=== PATIENT | female | born 1995 | race American Indian/Alaskan Native ===

== ENCOUNTER 2017-11-14 21:43 | Emergency (ER) | payer SELFPAY ==
[2017-11-15 00:12] LABS: HCG Qualitative,Urine Positive (Negative)
[2017-11-15 00:25] LABS: Bilirubin,Urine NEG (Negative); Blood,Urine NEG (Negative); Color,Urine Yellow (Yellow); Mucus,Urine 3+ /HPF; Protein,Urine <15 mg/dL mg/dL (Negative)
--- NOTE | 2017-11-15 02:15 | Ultrasound Report ---
FINAL REPORT PROCEDURE: US OB transabdominal and TRANSVAGINAL TECHNIQUE: Real-time transabdominal and transvaginal sonography of the uterus, placenta, amniotic fluid, adnexa, and fetus was performed with image documentation. Measurements were obtained to determine age/size. M-mode Doppler was used to document heartbeat. CPT 54742 and 36451 HISTORY: pregant abd pain COMPARISON: No prior studies are available for comparison. FINDINGS: Gestational Sac: There is a small gestational sac this measures 2 millimeters. This corresponds to a gestational age of approximately 5 weeks. No pole is seen at this time. Amniotic fluid: Normal. Cervix: Normal. Right Ovary: There are few cysts identified on the right ovary. One measures 29 millimeters. A 2nd cyst measures 17 millimeters Left Ovary: Normal. IMPRESSION: There is a gestational sac identified within the uterus. The gestational age would be around 5 weeks. No pole yolk sac is seen at this time. There are 2 small cysts identified in the right ovary. The left ovary has a normal appearance. Followup studies may be of benefit. This could include serial beta HCG levels as well as repeat ultrasound of 14 days.
--- NOTE | 2017-11-15 02:15 | Ultrasound Report ---
FINAL REPORT PROCEDURE: US OB TRANSVAGINAL TECHNIQUE: Real-time transabdominal and transvaginal sonography of the uterus, placenta, amniotic fluid, adnexa, and fetus was performed with image documentation. Measurements were obtained to determine age/size. M-mode Doppler was used to document heartbeat. CPT 46848 and 01917 HISTORY: pregant abd pain COMPARISON: No prior studies are available for comparison. FINDINGS: Gestational Sac: There is a small gestational sac this measures 2 millimeters. This corresponds to a gestational age of approximately 5 weeks. No pole is seen at this time. Amniotic fluid: Normal. Cervix: Normal. Right Ovary: There are few cysts identified on the right ovary. One measures 29 millimeters. A 2nd cyst measures 17 millimeters Left Ovary: Normal. IMPRESSION: There is a gestational sac identified within the uterus. The gestational age would be around 5 weeks. No pole yolk sac is seen at this time. There are 2 small cysts identified in the right ovary. The left ovary has a normal appearance. Followup studies may be of benefit. This could include serial beta HCG levels as well as repeat ultrasound of 14 days.
[2017-11-15] MEDS ORDERED: PROVENTIL IH ONE (02:33)
--- NOTE | 2017-11-15 02:38 | Emergency Department Report ---
- General Chief Complaint: Upper Respiratory Infection Stated Complaint: SOB, CHEST PAIN Time Seen by Provider: 11/15/17 02:02 Source: patient Mode of arrival: Ambulatory Limitations: No Limitations - History of Present Illness Initial Comments: 22-year-old female past medical history asthma, smoker presents with complaint of 2-3 days of intermittent wheezing. Patient states that she primarily came to the ED because she was wheezing. Triage ordered x-ray but canceled x-ray when determined that she had a positive test. Patient is currently awake alert and oriented 3 fully lucid. Denies fever chills nausea vomiting abdominal pain chest pain shortness of breath. States that she felt slightly short of breath earlier today. Denies any pleuritic chest pain. Patient is fully lucid awake alert and oriented 3 speaking in full sentences no audible wheezing or stridor. Denies fevers or chills. States that her sinuses have been slightly congested over the last 2 weeks. Last menstrual period was approximately beginning of September as per patient. MD Complaint: nasal congestion Onset/Timin -: week(s) - Related Data Previous Rx's Medication Instructions Recorded Last Taken Type Albuterol Sulfate [Ventolin Hfa] 1 puff IH Q4H PRN #1 hfa.aer.ad 11/15/17 Unknown Rx Fluticasone [Flonase] 1 spray NS QDAY PRN #1 bottle 11/15/17 Unknown Rx Nitrofurantoin Monohyd/M-Cryst 100 mg PO BID #10 capsule 11/15/17 Unknown Rx [Macrobid 100 mg Capsule] Pnv No.95/Ferrous Fum/Folic AC 1 each PO QDAY #30 tablet 11/15/17 Unknown Rx [ Formula Tablet] Allergies Allergy/AdvReac Type Severity Reaction Status Date / Time No Known Allergies Allergy Unverified 11/14/17 23:05 ED Review of Systems ROS: Stated complaint: SOB, CHEST PAIN Other details as noted in HPI ED Past Medical Hx - Past Medical History Previous Medical History?: Yes Hx Asthma: Yes Additional medical history: Bronchitis - Surgical History Past Surgical History?: No - Social History Smoking Status: Current Every Day Smoker Substance Use Type: Alcohol, Marijuana - Medications Home Medications: Home Medications Medication Instructions Recorded Confirmed Last Taken Type Albuterol Sulfate [Ventolin Hfa] 1 puff IH Q4H PRN #1 hfa.aer.ad 11/15/17 Unknown Rx Fluticasone [Flonase] 1 spray NS QDAY PRN #1 bottle 11/15/17 Unknown Rx Nitrofurantoin Monohyd/M-Cryst 100 mg PO BID #10 capsule 11/15/17 Unknown Rx [Macrobid 100 mg Capsule] Pnv No.95/Ferrous Fum/Folic AC 1 each PO QDAY #30 tablet 11/15/17 Unknown Rx [ Formula Tablet] ED Physical Exam - General Limitations: No Limitations General appearance: alert, in no apparent distress - Head Head exam: Present: atraumatic, normocephalic - Eye Eye exam: Present: normal appearance - ENT ENT exam: Present: mucous membranes moist - Neck Neck exam: Present: normal inspection - Respiratory Respiratory exam: Present: normal lung sounds bilaterally. Absent: respiratory distress - Cardiovascular Cardiovascular Exam: Present: regular rate, normal rhythm. Absent: systolic murmur, diastolic murmur, rubs, gallop - GI/Abdominal GI/Abdominal exam: Present: soft, normal bowel sounds - Extremities Exam Extremities exam: Present: normal inspection - Back Exam Back exam: Present: normal inspection - Neurological Exam Neurological exam: Present: alert, oriented X3, CN II-XII intact, normal gait - Psychiatric Psychiatric exam: Present: normal affect, normal mood - Skin Skin exam: Present: warm, dry, intact, normal color. Absent: rash ED Course Vital Signs 11/14/17 11/14/17 21:59 23:05 Temperature 98.9 F 98.9 F Pulse Rate 79 Respiratory 16 Rate Blood Pressure 111/74 O2 Sat by Pulse 100 Oximetry ED Medical Decision Making - Medical Decision Making A/P: Reactive airway disease, , UTI 1-Macrobid empiric 5 day course 2-Flonase, Tylenol, Mucinex 3-albuterol inhaler 4- ultrasound shows IUP at 5 weeks, patient reports no bleeding. Follow-up with primary care and [facility] Critical care attestation.: If time is entered above; I have spent that time in minutes in the direct care of this critically ill patient, excluding procedure time. ED Disposition Clinical Impression: Qualifiers: Weeks of gestation: less than 8 weeks Qualified Code(s): Z3A.01 - Less than 8 weeks gestation of Reactive airway disease Qualifiers: Asthma severity: mild Asthma persistence: intermittent Asthma complication type : with acute exacerbation Qualified Code(s): J45.21 - Mild intermittent asthma with (acute) exacerbation Urinary tract infection Qualifiers: Urinary tract infection type: site unspecified Hematuria presence: without hematuria Qualified Code(s): N39.0 - Urinary tract infection, site not specified Disposition: TO HOME OR SELFCARE Is pt being admited?: No Does the pt Need Aspirin: No Condition: Stable Instructions: (ED), Urinary Tract Infection in Women (ED), Reactive Airways Disease (ED) Prescriptions: Albuterol Sulfate [Ventolin Hfa] 1 puff IH Q4H PRN #1 hfa.aer.ad PRN Reason: Wheezing Fluticasone [Flonase] 1 spray NS QDAY PRN #1 bottle PRN Reason: Congestion Nitrofurantoin Monohyd/M-Cryst [Macrobid 100 mg Capsule] 100 mg PO BID #10 capsule Pnv No.95/Ferrous Fum/Folic AC [ Formula Tablet] 1 each PO QDAY #30 tablet Referrals: ORLANDO DAVISON MD [Primary Care Provider] - 3-5 Days [facility] [Provider Group] - 3-5 Days [facility] [Provider Group] - 3-5 Days Time of Disposition: 02:44
[2017-11-15 03:51] VITALS: BP 114/76
== END 2017-11-15 02:57 | disposition home or self-care (01) ==
LOC: ED 21:43
DX: O23.41 Unspecified infection of urinary tract in pregnancy, first trimester (principal); O99.511 Diseases of the respiratory system complicating pregnancy, first trimester; J45.909 Unspecified asthma, uncomplicated; F17.200 Nicotine dependence, unspecified, uncomplicated; F12.10 Cannabis abuse, uncomplicated; Z3A.01 Less than 8 weeks gestation of pregnancy
CPT/HCPCS: 36415; 76801; 76817; 81001; 81025; 84702; 87086; 93005; 93010; 94640; 99284

== ENCOUNTER 2019-12-31 23:23 | Emergency (ER) | payer MEDICAID ==
[2019-12-31 23:55] VITALS: BP 118/77
[2020-01-01 00:23] LABS: Basophils # (Auto) 0.2 K/mm3 (0.0-0.1); Basophils % (Auto) 1.5 % (0.0-1.8); Eosinophils # (Auto) 0.9 K/mm3 (0.0-0.4); Hematocrit 37.8 % (30.3-42.9); Hemoglobin 12.2 gm/dl (10.1-14.3); Lymphocytes # (Auto) 4.3 K/mm3 (1.2-5.4); Lymphocytes % (Auto) 28.8 % (13.4-35.0); Mean Corpuscular HGB Conc 32 % (30-34); Mean Corpuscular Volume 81 fl (79-97); Monocytes # (Auto) 1.1 K/mm3 (0.0-0.8); Monocytes % (Auto) 7.1 % (0.0-7.3); Platelet Count 364 K/mm3 (140-440); Red Blood Count 4.66 M/mm3 (3.65-5.03); Red Cell Distribution Width 15.2 % (13.2-15.2)
[2020-01-01 00:30] LABS: Partial Thromboplastin Time 35.3 Sec. (24.2-36.6)
[2020-01-01 00:38] LABS: Albumin 4.2 g/dL (3.9-5); BUN/Creatinine Ratio 9; Blood Urea Nitrogen 7 mg/dL (7-17); Calcium 9.1 mg/dL (8.4-10.2); Hemolysis Index 112
[2020-01-01 00:55] LABS: Alanine Aminotransferase 18 units/L (7-56)
[2020-01-01 00:58] LABS: Bacteria,Urine 1+ /HPF (Negative); Bilirubin,Urine NEG (Negative); Blood,Urine LG (Negative); Color,Urine Red (Yellow); Mucus,Urine FEW /HPF; Urobilinogen,Urine < 2.0 mg/dL (<2.0)
[2020-01-01 00:59] LABS: RBC,Urine > 182.0 /HPF (0.0-6.0)
--- NOTE | 2020-01-01 01:10 | Emergency Department Report ---
HPI - General Chief Complaint: Vaginal Bleeding Time Seen by Provider: 12/31/19 23:30 - HPI HPI: This is a 24-year-old -[place] female presents to the emergency department with a complaint of heavy vaginal bleeding and some pelvic cramping with a complaint that "I could be having a miscarriage." Patient says that she had her most recent menstrual cycle started on the first and going through the fifth or sixth. However the patient started bleeding again on the eighth with bright red blood that has been going through today. The patient started noticing large clots throughout today. She says that she took a negative home test at the end of last month, prior to her last menstrual cycle. She has a history of asthma and bronchitis. She denies any tobacco or illicit drug use. She has not taken anything for symptoms prior to presentation today. She does not have a local [facility]ER APPRENTICE. ED Past Medical Hx - Past Medical History Previous Medical History?: Yes Hx Asthma: Yes Additional medical history: Bronchitis - Surgical History Past Surgical History?: No - Social History Smoking Status: Current Every Day Smoker Substance Use Type: Marijuana - Medications Home Medications: Home Medications Medication Instructions Recorded Confirmed Last Taken Type Albuterol Sulfate [Ventolin Hfa] 1 puff IH Q4H PRN #1 hfa.aer.ad 11/15/17 Unknown Rx Fluticasone [Flonase] 1 spray NS QDAY PRN #1 bottle 11/15/17 Unknown Rx Nitrofurantoin Monohyd/M-Cryst 100 mg PO BID #10 capsule 11/15/17 Unknown Rx [Macrobid 100 mg Capsule] Pnv No.95/Ferrous Fum/Folic AC 1 each PO QDAY #30 tablet 11/15/17 Unknown Rx [ Formula Tablet] medroxyPROGESTERone ACETATE 10 mg PO QDAY #7 tablet 01/01/20 Unknown Rx [Provera] ED Review of Systems ROS: Stated complaint: VAGINAL HEMORRHAGE Other details as noted in HPI Comment: All other systems reviewed and negative Constitutional: denies: chills, fever Eyes: denies: eye pain, vision change ENT: denies: ear pain, throat pain Respiratory: denies: cough, shortness of breath Cardiovascular: denies: chest pain, palpitations Gastrointestinal: denies: nausea, vomiting Genitourinary: abnormal menses, other (pelvic cramping) Musculoskeletal: denies: back pain, arthralgia Skin: denies: rash, lesions Neurological: denies: headache, weakness Physical Exam - Physical Exam Vital Signs: Vital Signs 12/31/19 12/31/19 01/01/20 23:50 23:53 00:18 Temperature 98.5 F Pulse Rate 72 70 Respiratory 16 18 18 Rate Blood Pressure 118/77 [Left] O2 Sat by Pulse 100 100 Oximetry Physical Exam: GENERAL: The patient is well-developed well-nourished. HENT: Normocephalic. Atraumatic. Patient has moist mucous membranes. EYES: Extraocular motions are intact. NECK: Supple. Trachea is midline. CHEST/LUNGS: Clear to auscultation. There is no respiratory distress noted. HEART/CARDIOVASCULAR: Regular. There is no tachycardia. ABDOMEN: Abdomen is soft, nontender. Patient has normal bowel sounds. There is no abdominal distention. SKIN: Skin is warm and dry. NEURO: The patient is awake, alert, and oriented. The patient is cooperative. The patient has no focal neurologic deficits. Normal speech. MUSCULOSKELETAL: There is no tenderness or deformity. There is no evidence of acute injury. : There is a mild amount of blood seen in the vagina and coming from the cervical os. No mass seen. ED Course Vital Signs 12/31/19 12/31/19 01/01/20 23:50 23:53 00:18 Temperature 98.5 F Pulse Rate 72 70 Respiratory 16 18 18 Rate Blood Pressure 118/77 [Left] O2 Sat by Pulse 100 100 Oximetry - Reevaluation(s) Reevaluation #1: 01/01/20 02:37 Pelvic examination was done with nurse Burgess at bedside to mycologist and assist. ED Medical Decision Making - Lab Data Result diagrams: 12/31/19 23:41 12/31/19 23:41 - Radiology Data Radiology results: report reviewed ULTRASOUND PELVIS INDICATION: pelvic pain, abnormal vag bleeding. TECHNIQUE: Transabdominal. Duplex Color Doppler used: Yes. COMPARISON: None available F INDINGS: Uterus: Present. Size: 8.0 x 3.7 x 5.2 cm. Endometrial complex: Thickened measuring 12 mm. Mass lesions: None. Additional findings: None. Right Ovary -- measures 6.5 x 3.6 x 4.5 cm. Blood flow: Normal. Cyst or mass: Right ovarian cyst with one thin internal septation measures 5.2 x 2.6 x 2.7 cm Left Ovary-- Normal. Measures 2.5 x 1.5 x 2.5 cm. Blood flow: Normal. Cyst or mass: None. Urinary Bladder: Normal. Free Fluid: None. Additional Findings: Normal color Doppler and spectral waveforms are seen within both ovaries. IMPRESSION: 1. Thickened endometrial stripe. 2. 5 cm right ovarian cysts. No free fluid or torsion - Medical Decision Making This patient presents to the emergency department with a 4-day history of heavy vaginal bleeding and now a 1 day history of some clots. She is also had some mild pelvic cramping over this time. She previously had her menstrual cycle from December 19 or . On examination the patient does not appear in any acute distress. I did a pelvic examination on this patient with nurse Burgess at bedside to mycologist and assist and there was a mild amount of blood seen in the vagina and coming from the cervical os. Patient had a hemoglobin greater than 12. She was negative for both qualitative and quantitative . The pelvic ultrasound shows a thickened endometrial stripe and a 5 cm right ovarian cyst, but no free fluid or torsion. Her vital signs were stable throughout her ED course. For all these reasons the patient appears safe for discharge home at this time. She was placed on a few days of Provera for dysfunctional uterine bleeding. She was given multiple referrals for local [facility]ER APPRENTICE groups. I discussed the labs and imaging results with the patient, as well as the plan for outpatient follow-up and she understands and agrees to the plan. The patient will return to the emergency department immediately with any worsening of her symptoms or with any acute distress. Critical Care Time: No Critical care attestation.: If time is entered above; I have spent that time in minutes in the direct care of this critically ill patient, excluding procedure time. ED Disposition Clinical Impression: Metrorrhagia, Dysfunctional uterine bleeding Ovarian cyst Qualifiers: Laterality: right Qualified Code(s): N83.201 - Unspecified ovarian cyst, right side Disposition: TO HOME OR SELFCARE Is pt being admited?: No Condition: Stable Instructions: Dysfunctional Uterine Bleeding (ED), Ovarian Cyst (ED) Additional Instructions: Please follow-up with an JOINER APPRENTICE in the next few days. Return to the emergency department with any worsening of your symptoms or any acute distress. Prescriptions: medroxyPROGESTERone ACETATE [Provera] 10 mg PO QDAY #7 tablet Referrals: PRIMARY CARE, [Primary Care Provider] - 2-3 Days [facility] [Provider Group] - 2-3 Days [facility] [Provider Group] - 2-3 Days [facility] [Provider Group] - 2-3 Days Time of Disposition: 02:40
--- NOTE | 2020-01-01 02:19 | Ultrasound Report ---
ULTRASOUND PELVIS INDICATION: pelvic pain, abnormal vag bleeding. TECHNIQUE: Transabdominal. Duplex Color Doppler used: Yes. COMPARISON: None available FINDINGS: Uterus: Present. Size: 8.0 x 3.7 x 5.2 cm. Endometrial complex: Thickened measuring 12 mm. Mass lesions: None. Additional findings: None. Right Ovary -- measures 6.5 x 3.6 x 4.5 cm. Blood flow: Normal. Cyst or mass: Right ovarian cyst with one thin internal septation measures 5.2 x 2.6 x 2.7 cm Left Ovary-- Normal. Measures 2.5 x 1.5 x 2.5 cm. Blood flow: Normal. Cyst or mass: None. Urinary Bladder: Normal. Free Fluid: None. Additional Findings: Normal color Doppler and spectral waveforms are seen within both ovaries. IMPRESSION: 1. Thickened endometrial stripe. 2. 5 cm right ovarian cysts. No free fluid or torsion Signer Name: Sean Craft MD Signed: 01/01/2020 2:14 AM Workstation Name: [id number]
== END 2020-01-01 02:47 | disposition home or self-care (01) ==
LOC: ED 23:23
DX: N92.1 Excessive and frequent menstruation with irregular cycle (principal); N93.8 Other specified abnormal uterine and vaginal bleeding; N83.201 Unspecified ovarian cyst, right side
CPT/HCPCS: 36415; 80053; 81001; 84702; 84703; 85025; 85610; 85730; 86850; 86900; 86901; 93975